=== PATIENT | male | born 1980 | race Caucasian/White ===

== ENCOUNTER 2019-03-31 11:58 | Emergency (ER) | payer MEDICAID, SELFPAY ==
[2019-03-31 12:13] VITALS: BP 133/97; PULSE 86; RESP 18; TEMP 36.9; O2SAT 98
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
[2019-03-31] MEDS: Ibuprofen 600 MG TAB PO (12:51)
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
--- NOTE | 2019-03-31 13:28 | DI.VRAD_ITS ---
EXAM: XR Right Foot Complete EXAM DATE/TIME: 03/31/2019 12:33 PM CLINICAL HISTORY: 38 years old, male; Foot; Right; Patient HX: Pain after kicked wall, especially great toe TECHNIQUE: Imaging protocol: XR Right foot. Views: 3 or more views. COMPARISON: CR RIGHT FOOT COMPLETE 02/26/2014 10:01 PM FINDINGS: Bones/joints: Normal. There is no evidence of acute fracture.There is no evidence of malalignment or dislocation. Soft tissues: Normal. IMPRESSION: There is no evidence of acute fracture.There is no evidence of malalignment or dislocation. Dictated and Authenticated by: Estefani Petersen MD. Ordering:WALTER Wood MD
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
== END 2019-03-31 13:20 | disposition home or self-care (01) ==
PROVIDERS: Emergency Provider Physician Assistant; PCP Family Medicine
DX: S60.221A Contusion of right hand, initial encounter (principal); S90.111A Contusion of right great toe without damage to nail, initial encounter; Y04.0XXA Assault by unarmed brawl or fight, initial encounter
CPT/HCPCS: 99284; 73130; 73630; 99282

== ENCOUNTER 2019-11-07 06:55 | Emergency (ER) | payer MEDICAID, SELFPAY ==
[2019-11-07 06:59] VITALS: BP 134/78; PULSE 96; TEMP 36.6; O2SAT 99
--- NOTE | 2019-11-07 07:17 | ED.GENADUL_ITS ---
Discharge Plan Disposition Patient Disposition: HOME Condition: Good Discharge Details Chief Complaint: Sorethroat Clinical Impression: Hoarse Primary Care Provider: Jacob Whitehead ED Provider: Frantz Dunbar [place] Meds and New Rx's Prescriptions: Continued buprenorphine-naloxone [Suboxone] 1 EACH film 12 mg Sublingual PT TAKES 16 MG DAILY RF: 0 dexmethylphenidate [Focalin XR] 35 mg Capsule,Er Biphasic 50-50 35 mg PO DAILY RF: 0 quetiapine [Seroquel] 400 mg Tablet 400 mg PO HS RF: 0 Discharge Instructions Additional Instructions: This may be related to an upper respiratory infection. Symptoms are mild. You have no fever, history of travel or known exposures. Get some rest, drink plenty of fluids, use Tylenol for discomfort. We would prefer you to contact primary care in the future for mild symptoms or questions. Return to emergency department if increasing shortness of breath, mental status changes, chest pain, vomiting, other concerns. Referrals: Jacob Whitehead [Primary Care Provider] - Medical Decision Making Patient looks completely well. Dry mucous membranes but no erythema, exudate. No difficulty breathing. Normal pulse oximetry. Lungs clear. No stridor. Screens negative for coronavirus. Educated on use of emergency department, especially during this time of pandemic. Told to rest, hydrate, use Tylenol as needed. Contact primary care in future for mild symptoms. Return to ED for mental status changes, difficulty breathing, chest pain, inability to swallow, other concerns. HPI General Mode of arrival: ambulatory . Date/Time Provider Initiated Documentation: 11/07/19 07:09 . Limitations to Documentation: no limitations . Information obtained by: patient and RN notes reviewed . HPI Narrative: Patient presents to ED with complaint of mild sore throat and hoarseness. He woke up this morning like this. He otherwise does not feel ill. He has no fever. He has a smoker's cough which is unchanged. He has no shortness of breath or chest pain. He has no other URI type symptoms. There is been no travel. He has no known exposure to COVID. Related Data Home Medications Medication Instructions Recorded Confirmed buprenorphine-naloxone [Suboxone] 12 mg SUBLINGUAL PT TAKES 16 MG 04/09/13 11/07/19 DAILY film quetiapine [Seroquel] 400 mg PO HS 03/31/19 11/07/19 dexmethylphenidate [Focalin XR] 35 mg PO DAILY 11/07/19 11/07/19 Allergies Allergy/AdvReac Type Severity Reaction Status Date / Time Penicillins Allergy Severe Anaphylaxsi Unverified 03/31/19 12:21 s General Stated Complaint: Sorethroat MIQUEL: 4 Review of Systems Constitutional Constitutional: Denies body ache(s), Denies chills, Denies fever(s), Denies headache(s) and Denies malaise ENT Ears, Nose, Mouth, and Throat: Denies otalgia, Denies facial pain, Denies headache(s), Reports hoarseness, Denies sinus pain and Reports sore throat Cardiovascular Cardiovascular: Denies chest pain and Denies dyspnea Respiratory Respiratory: Denies chest congestion, Reports cough and Denies dyspnea Neurologic Neurologic: Denies headache(s) [facility] Medical History History of substance abuse (Acute) Surgical History No significant past surgical history (Acute) Social History Smoking/Tobacco Use Status: Current every day Tobacco Type: cigarettes Alcohol Intake: current Alcohol Intake frequency: a few times a month Alcohol type: beer Drug use: Occasionally Substance use type: marijuana Do you feel safe at home: Yes Do you feel safe in your relationship?: Yes Additional Social history: Homeless Exam Narrative Exam Narrative: Vitals: Afebrile. Normal vital signs and room air pulse oximetry. Const: WDWN male in NAD. HEENT: NC/AT. Normal facial exam. Normal TMs. Dry mucous membranes. No oral pharyngeal erythema, exudate, edema, ulcers. Eyes: Normal conjunctiva and sclera. Neck: Supple. Trachea midline. Lungs: Normal respiratory effort. Lungs are clear. Cor: RRR without murmur/gallop. Neuro: A+O x 3. Normal speech, mentation, gait. Cranial nerves II - XII grossly intact. No gross motor or sensory deficit. Course Vital Signs Vital signs: Vital Signs Temperature 97.9 F 11/07/19 06:59 Pulse 96 H 11/07/19 06:59 Blood Pressure 134/78 11/07/19 06:59 Pulse Oximetry 99 11/07/19 06:59 Temperature 97.9 F 11/07/19 06:59 Temperature Source Temporal Artery Scan 11/07/19 06:59 Pulse 96 H 11/07/19 06:59 Respiratory Effort Non-Labored 11/07/19 07:00 Blood Pressure 134/78 11/07/19 06:59 Blood Pressure Position Sitting 11/07/19 06:59 Pulse Oximetry 99 11/07/19 06:59 Oxygen Delivery Method Room Air 11/07/19 06:59 Oxygen Flow Rate 0 11/07/19 06:59 Pain Level 0 11/07/19 06:59
== END 2019-11-07 07:28 | disposition home or self-care (01) ==
LOC: ER 07:36
PROVIDERS: Emergency Provider Emergency Medicine; PCP Family Medicine
DX: R49.0 Dysphonia (principal); F17.210 Nicotine dependence, cigarettes, uncomplicated
CPT/HCPCS: 99282

== ENCOUNTER 2020-02-18 18:44 | Emergency (ER) | payer MEDICAID, SELFPAY ==
[2020-02-18 18:45] VITALS: BP 148/93; PULSE 109; RESP 16; TEMP 37.3; O2SAT 100
--- NOTE | 2020-02-18 18:45 | DI.RAD_ITS ---
EXAM: XR CHEST 2V PA LATERAL CLINICAL HISTORY: right chest pain TECHNIQUE: 2D digital imaging was performed. COMPARISON: No exams were available for comparison FINDINGS: MEDIASTINUM: Normal. HEART: Normal. PULMONARY VASCULATURE: Normal. LUNGS: Clear. PLEURAL SPACE: No pleural effusion or pneumothorax. BONE:Normal. OTHER FINDINGS:Normal. IMPRESSION: No acute pulmonary findings. DATA REPOSITORY: RADIATION DOSE DELIVERED:
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
[2020-02-18 19:23] LABS: ETHANOL BLOOD 97.9 mg/dL (<3)
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
--- NOTE | 2020-02-18 19:30 | DI.VRAD_ITS ---
PROCEDURE INFORMATION: Exam: XR Chest, 2 Views Exam date and time: 02/18/2020 7:14 PM Age: 39 years old Clinical indication: Right-sided chest pain; Patient HX: Right sided chest pain TECHNIQUE: Imaging protocol: XR of the chest Views: 2 views. COMPARISON: CR CHEST 2 VIEWS PA,LAT 06/17/2013 10:31 AM FINDINGS: Lungs: Unremarkable. No consolidation. Pleural space: Unremarkable. No pleural effusion. No pneumothorax. Heart/Mediastinum: Unremarkable. No cardiomegaly. Bones/joints: Unremarkable. IMPRESSION: No acute findings. Dictated and Authenticated by: Kannan Miranda MD. Ordering:NEAL Mccall MD
[2020-02-18] MEDS: Ibuprofen 400 MG TAB PO (19:52)
[2020-02-18 20:02] LABS: *AMPHETAMINES SCREEN URINE Negative (Negative); *BARBITURATES SCREEN URINE Negative (Negative); *BENZODIAZEPINES SCREEN URINE Negative (Negative); Cannabinoids THC POSITIVE (Negative); Cocaine Screen,Urine Negative (Negative); METHADONE URINE SCREEN Negative (Negative); OPIATES URINE SCREEN Negative (Negative); Tricyclic Antidepressants Negative (Negative)
== END 2020-02-18 20:05 | disposition home or self-care (01) ==
LOC: ER 20:37
PROVIDERS: Emergency Provider Student in an Organized Health Care Education/Training Program; PCP Family Medicine
DX: S20.211A Contusion of right front wall of thorax, initial encounter (principal); Y35.813A Legal intervention involving manhandling, suspect injured, initial encounter; R06.02 Shortness of breath; F10.10 Alcohol abuse, uncomplicated; Y90.4 Blood alcohol level of 80-99 mg/100 ml; F12.90 Cannabis use, unspecified, uncomplicated
CPT/HCPCS: 80307; 99285; 71046; 80320; 99284

== ENCOUNTER 2020-06-01 14:10 | Outpatient (REF) | payer MEDICAID, SELFPAY ==
[2020-06-01 19:14] LABS: HCT 39.8 % (40.0-50.0); HGB 12.9 g/dL (13.5-17.5); MCH 29.8 pg (27.0-33.0); MCHC 32.4 % (32.0-36.0); MCV 91.9 fL (80-95); MPV 11.5 fL (8.0-11.0); Platelet Count 255 10^3/uL (130-400); RBC 4.33 10^6/uL (4.36-5.78); RDW 14.1 % (11.8-14.1); WBC 4.01 10^3/uL (4.4-10.8)
[2020-06-01 19:18] LABS: ALT 29 U/L (16-63); AST 20 U/L (15-37); Albumin 3.9 g/dL (3.4-5.0); Alkaline Phosphatase 123 U/L (46-116); Anion Gap 7.4 mmol/L (3-11); BUN 6 mg/dL (7-18); Bilirubin, Total 0.3 mg/dL (0.2-1.0); CO2 31.6 mmol/L (21.0-32.0); CREATININE 0.72 mg/dL (0.70-1.30); Calcium 9.4 mg/dL (8.5-10.1); Calculated LDL 111 mg/dL (<100); Chloride 105 mmol/L (98-107); Cholesterol 212 mg/dL (<200); Glucose 92 mg/dL (74-106); HDL Cholesterol 45 mg/dL (40-60); Potassium 5.1 mmol/L (3.5-5.1); Sodium 144 mmol/L (136-145); Total Protein 7.2 g/dL (6.4-8.2); Triglyceride 283 mg/dL (<150)
[2020-06-01 19:55] LABS: Hemoglobin A1C 5.4 % (<5.7)
[2020-06-01 20:22] LABS: TSH 0.73 uIU/mL (0.36-3.74)
[2020-06-03 09:34] LABS: Hepatitis B Surface Ab Negative (See Note)
[2020-06-03 10:18] LABS: HIV-1/2 Ag & Ab Screen Negative (Negative)
[2020-06-03 10:21] LABS: Hepatitis B Surface Ag Negative (Negative)
[2020-06-03 10:24] LABS: Hep B Core Antibody Negative (Negative)
[2020-06-03 11:10] LABS: Hep A Total Ab w Rflx IgM Negative (Negative)
[2020-06-03 13:50] LABS: HCV RNA Qualitative Detected (Undetected)
[2020-06-05 14:40] LABS: HCV Genotype 1a (Undetected)
== END 2020-06-01 14:30 ==
LOC: NCHCN 14:10
PROVIDERS: PCP Family Medicine; Visit Provider Family Medicine
DX: B19.20 Unspecified viral hepatitis C without hepatic coma (principal); F31.9 Bipolar disorder, unspecified; Z13.220 Encounter for screening for lipoid disorders; Z13.1 Encounter for screening for diabetes mellitus; Z11.4 Encounter for screening for human immunodeficiency virus [HIV]; Z01.84 Encounter for antibody response examination
CPT/HCPCS: 80053; 80061; 85027; 86704; 86706; 86709; 87340; 87389; 87522; 83036; 84443; 87350; 87521

== ENCOUNTER 2021-03-15 07:03 | Emergency (ER) | payer MEDICAID, SELFPAY ==
[2021-03-15 07:06] VITALS: BP 134/89; PULSE 91; RESP 17; TEMP 37.1; O2SAT 97
--- NOTE | 2021-03-15 08:16 | W.ED.GENAD ---
Discharge Plan Disposition Patient Disposition: HOME Condition: Stable Discharge Details Clinical Impression: Forehead laceration Primary Care Provider: Jacob Whitehead ED Provider: Hardeep Arredondo Home Meds and New Rx's Prescriptions: Continued buprenorphine-naloxone [Suboxone] 1 EACH film 12 mg Sublingual PT TAKES 16 MG DAILY RF: 0 dexmethylphenidate [Focalin XR] 35 mg Capsule,Er Biphasic 50-50 35 mg PO DAILY RF: 0 gabapentin 800 mg Tablet 800 mg PO TID RF: 0 quetiapine [Seroquel] 400 mg Tablet 400 mg PO HS RF: 0 Discharge Instructions Instructions: Facial Laceration (ED) Additional Instructions: Laceration repaired without difficulty using 6 stitches. Keep the area clean and dry, cool compresses as tolerated. [id number] Tylenol and/or Motrin as directed for discomfort. Please watch for new or worsening symptoms and return to the ER for any concerns. Lastly, sutures should be removed in approximately 5 days, please return to the ER or make an appoint with your primary care provider. Medical Decision Making 40-year-old gentleman presents with a forehead laceration status post a mechanical trip and fall. Denies any other injury, LOC, headache, visual changes, neck pain, etc. Tetanus status is up-to-date. He appears well, nontoxic, no acute distress, neurologically intact. I see no clear indication for advanced imaging at this time. Will repair laceration. Laceration repaired without difficulty. Antibiotic ointment applied. Standard discharge and return precautions given. This documentation was generated using Android App Review Source dictation system, please disregard any oddities of phrase or misspellings. Medical Records Medical records reviewed: Yes I reviewed the patient's medical records. HPI General Mode of arrival: ambulatory. Date/Time Provider Initiated Documentation: 03/15/21 07:44. Limitations to Documentation: no limitations. Information obtained by: patient. HPI Narrative: This is a 40-year-old gentleman, denies significant past medical history, reports that his tetanus status is up-to-date, presents for a forehead laceration. He reports shortly before arrival he had a mechanical trip and fall striking his forehead on a coffee table. He denies LOC, global headache, visual change, neck pain, nausea, vomiting, numbness, tingling, weakness. Only complaint right now is that of moderate discomfort at the site of the laceration. Patient did not take any medications prior to arrival. He has no additional questions or concerns at this time. Related Data Home Medications Medication Instructions Recorded Confirmed buprenorphine-naloxone [Suboxone] 12 mg SUBLINGUAL PT TAKES 16 MG 04/09/13 03/15/21 DAILY film quetiapine [Seroquel] 400 mg PO HS 03/31/19 03/15/21 dexmethylphenidate [Focalin XR] 35 mg PO DAILY 11/07/19 03/15/21 gabapentin 800 mg PO TID 03/15/21 03/15/21 Allergies Allergy/AdvReac Type Severity Reaction Status Date / Time Penicillins Allergy Severe Anaphylaxsi Unverified 03/15/21 07:11 s General Stated Complaint: Laceration MIQUEL: 4 Review of Systems Constitutional Constitutional: Denies headache(s) and Denies weakness Eyes Eyes: Denies change in vision ENT Ears, Nose, Mouth, and Throat: Denies dizziness, Denies headache(s) and Denies neck pain Gastrointestinal Gastrointestinal: Denies nausea and Denies vomiting Musculoskeletal Musculoskeletal: Denies neck pain, Denies numbness and Denies tingling Neurologic Neurologic: Denies dizziness, Denies headache(s), Denies numbness, Denies tingling and Denies weakness [facility] Medical History History of substance abuse Surgical History No significant past surgical history Social History Smoking/Tobacco Use Status: Current every day Tobacco Type: cigarettes Smoking risk assessment performed?: Yes Alcohol Intake: former Drug use: Socially Substance use type: marijuana Do you feel safe at home: Yes Do you feel safe in your relationship?: Yes Additional Social history: Homeless Exam Const General: cooperative, healthy appearing, comfortable and no acute distress Orientation: alert, awake and oriented x3 [facility] Head: normocephalic Head images: 1. Irregular, vertical, 3 cm laceration. Minimal localized discomfort to palpation without crepitus, bony point tenderness, active bleeding or obvious foreign body. Neuro, vascular, tendon intact. Ears: external ears normal, TM's normal bilaterally and EAC's normal General nose exam: external nose normal Mouth: moist mucous membranes Throat: posterior oropharynx normal Eyes General: appearance normal, both eyes and all related structures Alignment and Position: alignment normal Periorbital: periorbital findings normal Eyelids: eyelids normal Conjunctivae: conjunctivae normal Sclera: sclerae normal Cornea: corneas normal Pupils: PERRL EOM: EOM intact bilaterally Direct ophthalmoscopy: normal light reflex Neck Neck: normal visual inspection, full ROM, trachea midline, supple and nontender Resp Effort & Inspection: normal respiratory effort and able to speak in complete sentences Skin General skin exam: no rashes or lesions noted Neuro General: patient alert, patient awake, patient oriented x3, moves all extremities and no focal motor deficits Cognition: normal cognition Speech: speech normal Gait: normal gait Motor: muscle tone normal throughout, no movement abnormalities noted and no fasciculations Sensory Exam: no sensory deficits noted Coordination: Does not sway with eyes open Extrem General: normal to inspection and full ROM Psych Appearance: grossly normal Mental Status: mental status grossly normal Course Vital Signs Vital signs: Vital Signs Temperature 37.1 C 03/15/21 07:06 Pulse 91 H 03/15/21 07:06 Respiratory Rate 17 03/15/21 07:06 Blood Pressure 134/89 03/15/21 07:06 Pulse Oximetry 97 03/15/21 07:06 Temperature 37.1 C 03/15/21 07:06 Pulse 91 H 03/15/21 07:06 Respiratory Rate 17 03/15/21 07:06 Respiratory Effort Non-Labored 03/15/21 07:10 Blood Pressure 134/89 03/15/21 07:06 Blood Pressure Position Sitting 03/15/21 07:06 Pulse Oximetry 97 03/15/21 07:06 Oxygen Delivery Method Room Air 03/15/21 07:06 Oxygen Flow Rate 0 03/15/21 07:06 Pain Level 7 03/15/21 07:06 Procedures Laceration Laceration 1: Site: face Size (cm): 3 Description: irregular and clean Depth: simple, single layer Local Anesthetic: Lidocaine 1% and with Epi Amount of anesthesia used (mL): 5 Pre-repair: wound explored, irrigated extensively and deep structures intact Skin layer closed with: nylon Size (cm): 6-0 Number of sutures: 6 Technique: simple, interrupted
== END 2021-03-15 08:20 | disposition home or self-care (01) ==
LOC: ER 08:29
PROVIDERS: Emergency Provider Physician Assistant; PCP Family Medicine
DX: S01.81XA Laceration without foreign body of other part of head, initial encounter (principal); W01.190A Fall on same level from slipping, tripping and stumbling with subsequent striking against furniture, initial encounter
CPT/HCPCS: 12013

== ENCOUNTER 2022-03-13 16:01 | Emergency (ER) | payer MEDICAID, SELFPAY ==
[2022-03-13 16:06] VITALS: BP 114/56; PULSE 73; RESP 18; TEMP 36.7; O2SAT 98
--- OUTSIDE RECORDS SUMMARY | 2022-03-13 16:24 | XMS_ITS | Encounter Summary ---
:1980 Author Organization [facility] [place] [address] Care Team Providers Name Role Phone Jacob Sexton MD Primary Care Provider Encounter Details Date Type Department Care Team Description 07/02/2013 Telephone Pain Management at [facility] Malorie Cohen, [place] [address] Social History Tobacco Use Types Packs/Day Years Used Date Current Every Day Smoker Cigarettes 0.5 Sex Assigned at Date Recorded Not on file documented as of this encounter Miscellaneous Notes Telephone Encounter - Malorie Cohen RN - 07/02/2013 10:33 AM EST Shaheed Caldera :1980 Message left: I left a message on answering machine Mr. Caldera at 10:33 AM regarding his upcoming lumbar epidural steroid injection with Dr. Kenneth Carvajal MD. Message included the followin. Patient instructed to arrive at 2:30 (30 minutes prior to procedure start time) on 07/03/13 (dateof procedure) with their trolley coach driver. 2. Following instructions left in the message: - Bring Updated list of medications including dosage and reason for taking. - Call the Pain Clinic Nurse at for: ~Procedure instructions. ~If you are taking antibiotics. ~If you have any signs or symptoms of infection, cold or flu. ~If you have any skin breakdown (rashes, cysts, or abscess.) ~If you are taking anticoagulants / blood thiners (Plavix, Pletal, Lovenox, Coumadin, etc). documented in this encounter Plan of Treatment Not on filedocumented as of this encounter Visit Diagnoses Not on filedocumented in this encounter Care Teams Box Repairer Relationship Specialty Start Date End Date Jacob Sexton MD PCP - General 04/09/13 07/02/13 documented as of this encounter
--- OUTSIDE RECORDS SUMMARY | 2022-03-13 16:24 | XMS_ITS | Encounter Summary ---
:1980 [place] [address] Care Team Providers Name Role Phone Jacob Sexton MD Primary Care Provider Encounter Details Date Type Department Care Team Description 07/03/2013 Orders Only Pain Management at Kenneth Butler MD [facility] [place] [address] PAIN CLINIC [phone] [place], [place] [address] (Wo rk) Social History Tobacco Use Types Packs/Day Years Used Date Current Every Day Smoker Cigarettes 0.5 Sex Assigned at Date Recorded Not on file documented as of this encounter Plan of Treatment Pending Results Name Type Priority Associated Diagnoses Date/Ti me Film Library-storage Imaging Routine 013 3:00 PM EST only pain clinic C-arm documented as of this encounter Visit Diagnoses Not on filedocumented in this encounter Care Teams Planning Engineer Relationship Specialty Start Date End Date Jacob Sexton MD PCP - General 07/03/13 08/04/13 documented as of this encounter
--- OUTSIDE RECORDS SUMMARY | 2022-03-13 16:24 | XMS_ITS | Encounter Summary ---
:1980 Author Organization [place] [address] Care Team Providers Name Role Phone Jacob Sexton MD Primary Care Provider Encounter Details Date Type Department Care Team Description 12/04/2013 Telephone Pain Management at [facility] Lei Meredith, [place] [address] Social History Tobacco Use Types Packs/Day Years Used Date Current Every Day Smoker Cigarettes 0.5 Sex Assigned at Date Recorded Not on file documented as of this encounter Miscellaneous Notes Telephone Encounter - Lei Meredith, RN - 12/04/2013 11:23 AM EDT VM left on Triage line re: patient cancelled appointment with Dr. Carvajal for 12/06/13 due to transportation difficulty. Patient wanted Dr. Carvajal to know. TC to patient to confirm acknowledgement of VM .LEI MEREDITH RN documented in this encounter Plan of Treatment Not on filedocumented as of this encounter Visit Diagnoses Not on filedocumented in this encounter Care Teams Tin Can Laborer Relationship Specialty Start Date End Date Jacob Sexton MD PCP - General 10/16/13 08/20/19 documented as of this encounter
--- OUTSIDE RECORDS SUMMARY | 2022-03-13 16:24 | XMS_ITS | Encounter Summary ---
:1980 Author Organization [facility] [place] [address] Care Team Providers Name Role Phone Jacob Sexton MD Primary Care Provider Encounter Details Date Type Department Care Team Description 03/07/2013 Orders Only Sp[facility] at [facility] Shabbir Prince MD [facility] [place] [address] NEUROSURGERY [phone] [place], [place] [address] (Wo rk) Social History Tobacco Use Types Packs/Day Years Used Date Never Assessed Sex Assigned at Date Recorded Not on file documented as of this encounter Plan of Treatment Not on filedocumented as of this encounter Procedures Procedure Name Priority Date/Time Associated Diagnosis Comme nts FILM LIBRARY Routine 03/07/2013 10:02 AM Results for this STORAGE ONLY MR EDT procedure ar e in SPINE the results section. documented in this encounter Results Film Library- Storage only MR Spine (03/07/2013 10:02 AM EDT) Specimen (Source) Anatomical Collection Method Collection Time Re ceived Time Location / / Volume Laterality 03/07/2013 10:02 AM EDT Narrative RAD - 04/16/2014 11:28 AM EDT This is a non-reportable exam. Procedure Note Kishor Mike - 04/16/2014Formatti ng of this note might be different from the original. This is a non-reportable exam. Shabbir Grant MD IMG FILM LIBRARY ORDERABLES Performing Organization Address City/State/ZIP Code Phon e Number [facility] [address] [facility] [place] [address] documented in this encounter Visit Diagnoses Not on filedocumented in this encounter Care Teams Wireless Internet Installer Relationship Specialty Start Date End Date Jacob Sexton MD PCP - General 04/09/13 07/02/13 documented as of this encounter
--- OUTSIDE RECORDS SUMMARY | 2022-03-13 16:24 | XMS_ITS | Encounter Summary ---
:1980 [place] [address] Care Team Providers Name Role Phone Jacob Sexton MD Primary Care Provider Encounter Details Date Type Department Care Team Description 11/22/2013 Telephone Pain Management at [facility] Lei Meredith, [place] [address] Social History Tobacco Use Types Packs/Day Years Used Date Current Every Day Smoker Cigarettes 0.5 Sex Assigned at Date Recorded Not on file documented as of this encounter Miscellaneous Notes Telephone Encounter - Lei Meredith, RN - 11/22/2013 2:19 PM EDT Patient called to request Dr. Carvajal fill out some papers regarding a disability case from a crush injury in L4 & L5. Patient states that paperwork was sent to Dr. Carvajal via patient's state's attorney andaccording to patient, Dr. Carvajal has refused to fill out paperwork and patient would like to know why. Patient was informed that his message would be delivered to Dr. Carvajal for feedback. Patient had no further requests. LEI MEREDITH, AG documented in this encounter Plan of Treatment Not on filedocumented as of this encounter Visit Diagnoses Not on filedocumented in this encounter Care Teams Sugar Trucker Relationship Specialty Start Date End Date Jacob Sexton MD PCP - General 10/16/13 08/20/19 documented as of this encounter
--- OUTSIDE RECORDS SUMMARY | 2022-03-13 16:24 | XMS_ITS | Encounter Summary ---
:1980 Author Organization [facility] Address [address] [place] [address] Care Team Providers Name Role Phone Jacob Sexton MD Primary Care Provider Reason for Visit Reason Onset Date Comments Headache 07/11/2013 worsening for multip le days; worse when upright, light sensitive Encounter Details Date Type Department Care Team Description 07/11/2013 Telephone Spine Center at [facility] non Basilia Bower Headache (worsening for [facility] Estefania RN multiple days; worse Drive when upright, [place] [address] sensitive) [phone] Social History Tobacco Use Types Packs/Day Years Used Date Current Every Day Smoker Cigarettes 0.5 Sex Assigned at Date Recorded Not on file documented as of this encounter Miscellaneous Notes Telephone Encounter - Basilia Bower RN - 07/11/2013 2:06 PM EST Received call from pt's mother, who later put pt on the phone; reporting injection with Dr Donahue 07/03; Denies any benefit. Reports onset of nausea since the injection. Onset of a headache ~ 07/08 or 07/09 which has gotten progressively worse. Describes it as migraine at present time. Reports light se nsitivity, continued nausea and increase in headache when sitting or standing. Reports that the headache does ease up when he's supine. Caller reports leaving messages at [phone] for two days; reportsawaiting return call but he does acknowledge not paying close attention to his cell phone. Offerred to transfer caller to nurses line so he could speak with staff directly. documented in this encounter Plan of Treatment Not on filedocumented as of this encounter Visit Diagnoses Not on filedocumented in this encounter Care Teams Nursing Unit Clerk Relationship Specialty Start Date End Date Jacob Sexton MD PCP - General 07/03/13 08/04/13 documented as of this encounter
--- OUTSIDE RECORDS SUMMARY | 2022-03-13 16:24 | XMS_ITS | Encounter Summary ---
:1980 Author Organization [facility] [address] Care Team Providers Name Role Phone Jacob Sexton MD Primary Care Provider Reason for Referral Physical Therapy (Routine) - Closed by system - Referral Specialty Diagnoses / Procedures Referred By Contact Refer red To Contact Physical Therapy Diagnoses Myalgia and myositis, unspecified Kenneth Carvajal MD [facility] [place] [address] Referral ID Status Reason Start Expiration Visits Visits Date Date Requested Authorized [id number] Closed by Evaluate and 10/16/2013 04/14/2014 1 1 system - Treat Referral Reason for Visit Reason Comments Back Pain Encounter Details Date Type Department Care Team Description 10/16/2013 Procedure visit Pain Management at Kenneth Carvajal lgia and myositis, [facility] MD Tomás unspecified (Primary [facility] [address] [place], [place] PA[facility] CLINIC [address] [place] [address] [phone] Social History Tobacco Use Types Packs/Day Years Used Date Current Every Day Smoker Cigarettes 0.5 Sex Assigned at Date Recorded Not on file documented as of this encounter Last Filed Vital Signs Vital Sign Reading Time Taken Comments Blood Pressure 133/80 10/16/2013 1:11 PM EST Pulse 104 10/16/2013 1:11 PM EST Temperature - - Respiratory Rate 18 10/16/2013 1:11 PM EST Oxygen Saturation 100% 10/16/2013 1:11 PM EST Inhaled Oxygen Concentration - - Weight 63.5 kg (140 lb) 10/16/2013 1:11 PM EST Height 167.6 cm (5' 6) 10/16/2013 1:11 PM EST Body Mass Index 22.6 10/16/2013 1:11 PM EST documented in this encounter Patient Instructions Patient InstructionsAraceli Diaz LPN - 10/16/2013 1:29 PM EST Pain Management Center Discharge Instructions: You were seen by Dr. Kenneth Carvajal MD who performed Trigger Point INJ.. [x] You may resume your normal activities: today. You may shower today. DO NOT tub bathe, use whirlpools, hot tubs or pool therapy for 2 days. Remove Band-Aid(s) later today/tomorrow. Do not drive until tomorrow. Use caution walking/climbing stairs as you may be unsteady on your feet. You may use your usual medications, including pain medications, as directed, unless otherwise instructed. You may use an ice pack as needed for the first 24 hours, on for 20 minutes then off for 20 minutes.Do not apply heat today. Attempt to empty your bladder 4-6 hours after your procedure. You received the following medications: Lidocaine. During regular business hours, please phone the Pain Management Center at for appointments or with any questions or if the following or other troubling symptoms develop: 1) Prolonged dizziness or weakness (more than 1 day). 2) Localized swelling, redness or drainage at the injection site(s). 3) Temperature of 101 degrees that lasts for more than 4 hours. After 5 PM or on weekends, call and ask for Pain Clinic provider on-call. If you are unable to reach the Pain Management Center and have a complication, please call your Primary Care Provider or proceed to your local emergency department. Araceli Diaz LPN Special instructions documented in this encounter Progress Notes Kenneth Carvajal MD - 10/16/2013 1:41 PM EST Patient came in today to have a repeat lumbar epidural steroid injection. Patient tells me that majority of his pain is along the belt line left-sided in the medial superior gluteal area. The pain is constant in the belt line with occasional radiation sharp pain down the leg into the calf. He denies any new symptoms including numbness or weakness. On exam, patient has significant myofascial contraction knots in the medial superior gluteal area left-sided. Patient has 5 out of 5 strength in the L4-S1 muscle groups bilaterally. I impression is that the majority of his pain is myofascial and longer neuropathic. Procedure note Trigger point injection x1 Each area was prepped with alcohol. Using a 25 gauge 2 inch needle and 1% lidocaine, I was able to elicit a positive jump sign at each location. One or two cc of 1% lidocaine was injected into each contraction knot, with one or two cc injected around each contraction knot. Negative aspiration at all times. Total of 4 cc of lidocaine used. No complications. It is important to note however the patient has been to stop after the first trigger point injections because of excessive pain. Plan to further injections to perform. Plan-patient does have myofascial pain. We'll send him to physical therapy. Followup as weeks. I showed him a simple chest stretch. Araceli Diaz LPN - 10/16/2013 1:11 PM EST Pre-Procedure Screening Questions: 1. Status: No 2. 3. Patient states they have a power screwdriver operator to transport after procedure? Yes 4. Patient taking antibiotics at present? No 5. NPO per Pain Management Center protocol? No 6. 7. Patient diabetic: No __ borderline (not treated with medications) __ managed with oral medications __ managed with injected medications 8. Patient routinely taking anticoagulants ? No Date stopped Current INR Patient Vital Signs documented in Doc Flowsheets associated with this encounter. Patient Discharge Instructions were reviewed with patient and copy provided to patient. documented in this encounter Plan of Treatment Scheduled Referrals Name Type Priority Associated Diagnoses Order S chedule Referral to Outpatient Referral Routine Myalgia and myositis, Ordered: Physical Therapy unspecified 10/16/2013 documented as of this encounter Visit Diagnoses Diagnosis Myalgia and myositis, unspecified - Prim lesa Mylagia and myositis, unspecified documented in this encounter Administered Medications Inactive Administered Medications - up to 3 most recent administrations Medication Order MAR Action Action Date Dose Rate Site lidocaine (PF) (XYLOCAINE) 10 mg/mL Given 10/16/2013 2:00 PM EST 50 mg (1 %) injection 50 mg 50 mg, Other, ONCE, 1 dose, On Mon10/16/13 at 1400, Routine documented in this encounter Care Teams Channel Development Manager Relationship Specialty Start Date End Date Jacob Sexton MD PCP - General 10/16/13 08/20/19 documented as of this encounter
--- OUTSIDE RECORDS SUMMARY | 2022-03-13 16:24 | XMS_ITS | Encounter Summary ---
:1980 [place] [address] Care Team Providers Name Role Phone Jacob Sexton MD Primary Care Provider Encounter Details Date Type Department Care Team Description 09/09/2014 Orders Only Orthopaedics at [facility] Marlon Palumbo MD Heel [place], [place] [address] ORTHOPAEDIC SURG [place], [place] [address] (Wo rk) Social History Tobacco Use Types Packs/Day Years Used Date Current Every Day Smoker Cigarettes 0.5 Sex Assigned at Date Recorded Not on file documented as of this encounter Plan of Treatment Not on filedocumented as of this encounter Visit Diagnoses Diagnosis Heel pain, right documented in this encounter Care Teams Nursery Helper Relationship Specialty Start Date End Date Jacob Sexton MD PCP - General 10/16/13 08/20/19 documented as of this encounter
--- OUTSIDE RECORDS SUMMARY | 2022-03-13 16:24 | XMS_ITS | Encounter Summary ---
:1980 Author Organization [facility] [place] [address] Care Team Providers Name Role Phone Jacob Sexton MD Primary Care Provider Encounter Details Date Type Department Care Team Description 02/26/2014 Orders Only Radiology Jacob Patel MD [facility] [address] [place] [address] [place], [place] [phone] (Wo rk) Social History Tobacco Use Types Packs/Day Years Used Date Current Every Day Smoker Cigarettes 0.5 Sex Assigned at Date Recorded Not on file documented as of this encounter Plan of Treatment Not on filedocumented as of this encounter Procedures Procedure Name Priority Date/Time Associated Diagnosis Comme nts FILM LIBRARY Routine 02/26/2014 8:45 AM Results f or this STORAGE ONLY DX EDT procedure ar e in FOOT the results section. documented in this encounter Results Film Library- Storage only DX Foot (02/26/2014 8:45 AM EDT) Anatomical Region Laterality Modality Other Specimen (Source) Anatomical Collection Method Collection Time Re ceived Time Location / / Volume Laterality 02/26/2014 8:45 AM EDT Narrative 09/08/2014 8:39 AM EST This is a Non-reportable exam Procedure Note DUNCAN, UNSIGNED REPORT - 09/08/2014Formatt ing of this note might be different from the original. This is a Non-reportable exam Jacob Sexton MD IMG FILM LIBRARY ORDERABLES documented in this encounter Visit Diagnoses Not on filedocumented in this encounter Care Teams Die Cast Operator Relationship Specialty Start Date End Date Jacob Sexton MD PCP - General 10/16/13 08/20/19 documented as of this encounter
--- OUTSIDE RECORDS SUMMARY | 2022-03-13 16:24 | XMS_ITS | Encounter Summary ---
:1980 [place] [address] Care Team Providers Name Role Phone Jacob Sexton MD Primary Care Provider Encounter Details Date Type Department Care Team Description 04/01/2014 Orders Only [place] [facility]lon Palumbo MD [facility] [place] [address] ORTHOPAEDIC SURGERY [phone] [place], [place] [address] (Wo rk) Social History Tobacco Use Types Packs/Day Years Used Date Current Every Day Smoker Cigarettes 0.5 Sex Assigned at Date Recorded Not on file documented as of this encounter Plan of Treatment Not on filedocumented as of this encounter Procedures Procedure Name Priority Date/Time Associated Diagnosis Comme nts FILM LIBRARY Routine 04/01/2014 9:04 AM Results f or this STORAGE ONLY DX EDT procedure ar e in FOOT the results section. documented in this encounter Results Film Library- Storage only DX Foot (04/01/2014 9:04 AM EDT) Anatomical Region Laterality Modality Other Specimen (Source) Anatomical Collection Method Collection Time Re ceived Time Location / / Volume Laterality 04/01/2014 9:04 AM EDT Narrative 09/10/2014 9:09 AM EST This is a Non-reportable exam Procedure Note DUNCAN, UNSIGNED REPORT - 09/10/2014Formatt ing of this note might be different from the original. This is a Non-reportable exam Marlon Palumbo MD IMG FILM LIBRARY ORDERABLES documented in this encounter Visit Diagnoses Not on filedocumented in this encounter Care Teams Cement Finisher Relationship Specialty Start Date End Date Jacob Sexton MD PCP - General 10/16/13 08/20/19 documented as of this encounter
--- OUTSIDE RECORDS SUMMARY | 2022-03-13 16:24 | XMS_ITS | Encounter Summary ---
:1980 [place] [address] Care Team Providers Name Role Phone Jacob Sexton MD Primary Care Provider Reason for Referral Second Surgical Opinion (Routine) - Closed Specialty Diagnoses / Procedures Referred By Contact Refer red To Contact Orthopaedic Surgery / Diagnoses Calcaneal fracture, right, closed, initial encounter Matias Kim MD Hecht, Paul J, MD Orthopaedics [facility] [address] [place] [address] Fax: Referral ID Status Reason Start Date Expiration Date Visits V isits Requested Authorized [id number] Closed Second 08/27/2014 08/27/2015 1 1 Opinion Reason for Visit Reason Onset Date Comments Medication Refill 08/27/2014 Encounter Details Date Type Department Care Team Description 08/27/2014 Refill Pain Management at Matias Kim MD Calcaneal fracture, [facility]3] right, closed, initial [facility] DR encounter [place] [address] [place] [address] [phone] (Wo rk) Social History Tobacco Use Types Packs/Day Years Used Date Current Every Day Smoker Cigarettes 0.5 Sex Assigned at Date Recorded Not on file documented as of this encounter Plan of Treatment Scheduled Referrals Name Type Priority Associated Order Schedule Diagnoses Referral to Outpatient Referral Routine Calcaneal fracture, O rdered: Orthopaedics right, closed, 08/27/2014 initial encounter documented as of this encounter Visit Diagnoses Diagnosis Calcaneal fracture, right, closed, initi al encounter documented in this encounter Care Teams Instructional Resource Teacher Relationship Specialty Start Date End Date Jacob Sexton MD PCP - General 10/16/13 08/20/19 documented as of this encounter
--- OUTSIDE RECORDS SUMMARY | 2022-03-13 16:24 | XMS_ITS | Encounter Summary ---
:1980 [place] [address] Care Team Providers Name Role Phone Jacob Sexton MD Primary Care Provider Encounter Details Date Type Department Care Team Description 04/29/2014 Orders Only [place] [facility]lon Palumbo MD [facility] [place] [address] ORTHOPAEDIC SURGERY [phone] [place], [place] [address] (Wo rk) Social History Tobacco Use Types Packs/Day Years Used Date Current Every Day Smoker Cigarettes 0.5 Sex Assigned at Date Recorded Not on file documented as of this encounter Plan of Treatment Not on filedocumented as of this encounter Procedures Procedure Name Priority Date/Time Associated Diagnosis Comme nts FILM LIBRARY Routine 04/29/2014 9:02 AM Results f or this STORAGE ONLY DX EDT procedure ar e in FOOT the results section. documented in this encounter Results Film Library- Storage only DX Foot (04/29/2014 9:02 AM EDT) Anatomical Region Laterality Modality Other Specimen (Source) Anatomical Collection Method Collection Time Re ceived Time Location / / Volume Laterality 04/29/2014 9:02 AM EDT Narrative 09/10/2014 9:07 AM EST This is a Non-reportable exam Procedure Note DUNCAN, UNSIGNED REPORT - 09/10/2014Formatt ing of this note might be different from the original. This is a Non-reportable exam Marlon Palumbo MD IMG FILM LIBRARY ORDERABLES documented in this encounter Visit Diagnoses Not on filedocumented in this encounter Care Teams Grazing Aide Relationship Specialty Start Date End Date Jacob Sexton MD PCP - General 10/16/13 08/20/19 documented as of this encounter
--- OUTSIDE RECORDS SUMMARY | 2022-03-13 16:24 | XMS_ITS | Encounter Summary ---
:1980 Author Organization [facility] [place] [address] Care Team Providers Name Role Phone Jacob Sexton MD Primary Care Provider Reason for Referral Consultation (Routine) - Closed Specialty Diagnoses / Procedures Referred By Contact Refer red To Contact Pain Management Diagnoses Back pain with radiation David Diehl MD [facility] [address] [place] [address] [address] Fax: Referral ID Status Reason Start Date Expiration Date Visits V isits Requested Authorized [id number] Closed Consult Only 06/27/2013 12/24/2013 1 1 Reason for Visit Reason Comments Back Pain Bilateral Hip Pain Bilateral Leg Pain Encounter Details Date Type Department Care Team Description 06/27/2013 Office Visit Spine Center at David Diehl Back tobi n with Sammy CHAN radiation to left leg [facility] (Pr imary Dx) [address] [place] SP[place] [address] [place] [address] [phone] Social History Tobacco Use Types Packs/Day Years Used Date Current Every Day Smoker Cigarettes 0.5 Sex Assigned at Date Recorded Not on file documented as of this encounter Last Filed Vital Signs Vital Sign Reading Time Taken Comments Blood Pressure 124/78 06/27/2013 2:11 PM EST Pulse - - Temperature - - Respiratory Rate - - Oxygen Saturation - - Inhaled Oxygen Concentration - - Weight 60.8 kg (134 lb) 06/27/2013 2:11 PM EST Height 167.6 cm (5' 6) 06/27/2013 2:11 PM EST Body Mass Index 21.63 06/27/2013 2:11 PM EST documented in this encounter Progress Notes David Diehl MD - 06/27/2013 2:42 PM EST Mr. Caldera is a 32-year-old gentleman seen today in the spine center consultation from Dr. Smart. The patient is seen and evaluated for chronic low back pain more recently, over the past several years left leg pain. It is not quite clear when his symptoms began. He reports having back pain in 2009 while he was at a work camp (alf) doing wood and he jumped out of a van and had the acute onset of pain. Subsequent to that he was carrying 250-pound bags of potatoes up some stairs and had more back pain. It is not clear when the left leg symptoms developed. His right leg is relatively asymptomatic. His back pain is the bigger problem. His left leg pain begins in the buttock, radiates in the lateral thigh, lateral leg, occasionally over the medial foot. He has a sense of weakness with the knee giving way on the left. He reports having physical therapy, which made him worse. He has had no steroid injections. Past history is notable for substance abuse. His medications include Antabuse and Suboxone amongst others in his medications and allergies, which include penicillin are confirmed. He denies any other medical or surgical issues. He reports hypothyroidism as a family history. Denies any cardiac disease. His review of systems is negative for GI, , or constitutional symptoms. This is a thin pleasant gentleman. He moves comfortably about the office and has no problems changing position. His gait is normal. He has an ankle brace on his right ankle, I believe. With this in place, he is still able to walk on his toes and heels. His spinal alignment is normal with a level pelvis and straight spine. He has pain to palpation in the midline low back and in the right sciatic notch. Left side is the symptomatic leg. His motor examination is normal. His sensory function is diminished to light touch in the left lateral leg and left medial foot. Reflexes are 2+ at the knees, 2 at the ankles. His straight leg raise test is negative. His imaging includes a lumbar MRI from 03/07/2013 from [facility]. This demonstrates a broad-based disk bulge at L4-L5, which maybe contributing to some narrowing in the L4-L5 lateral recess bilaterally even though he is symptomatic only on the left side. There is a small bulging disk at L5-S1, which I think is providing no nerve root compression. IMPRESSION: Chronic back pain with left leg symptoms. Back pain is more bothersome than the leg, symptoms have been chronic. Symptoms are exacerbated with physical therapy putting him at bed for several days. RECOMMENDATION: We reviewed these findings with the patient including the MRI findings. I am a bit hesitant to think that a lumbar disk excision at L4-L5 left side will cure all this gentleman's problems. I have advised against surgery at this point in time. I do not think he has maximized medical management. He is not on any anti-inflammatory medications. He has not had any epidural steroid injections. I think these would be worth trying. The operative success for diskectomy with back pain as the primary problem is pretty low as is the operative success for chronic back pain and chronic symptoms. Thus, I would hope to manage this medically rather than surgically. At this point, we have scheduled him for a series of epidural steroid injections here at the pain clinic. He preferred this rather than having Dr. Smart trying to do this closer to home. Hopefully, this will provide some relief. We will recheck as needed. documented in this encounter Plan of Treatment Scheduled Referrals Name Type Priority Associated Diagnoses Order S chedule Referral to Pain Outpatient Referral Routine Back pain with Or dered: Clinic radiation to left 06/27/2013 leg documented as of this encounter Visit Diagnoses Diagnosis Back pain with radiation to left leg - P rimary Backache, unspecified documented in this encounter Care Teams Global Climate Change Researcher Relationship Specialty Start Date End Date Jacob Sexton MD PCP - General 04/09/13 07/02/13 documented as of this encounter
--- OUTSIDE RECORDS SUMMARY | 2022-03-13 16:24 | XMS_ITS | Encounter Summary ---
:1980 Author Organization [facility] [place] [address] Care Team Providers Name Role Phone Tez Pandey MD Primary Care Provider [phone] Encounter Details Date Type Department Care Team Description 08/12/2013 Telephone Pain Management at [facility] Malorie Cohen, [place] [address] Social History Tobacco Use Types Packs/Day Years Used Date Current Every Day Smoker Cigarettes 0.5 Sex Assigned at Date Recorded Not on file documented as of this encounter Miscellaneous Notes Telephone Encounter - Malorie Cohen, RN - 08/12/2013 3:04 PM EST Shaheed Caldera :1980 Message left: I left a message on answering machine Mr. Caldera at 3:04 PM regarding his upcoming lumbar epiduralsteroid injection with Dr. Kenneth Carvajal MD. Message included the following: Following instructions left in the message: - Call the Pain Clinic Nurse at for: ~Procedure instructions. documented in this encounter Plan of Treatment Not on filedocumented as of this encounter Visit Diagnoses Not on filedocumented in this encounter Care Teams Examination Scorer Relationship Specialty Start Date End Date Tez Pandey MD PCP - General 08/05/13 10/15/13 documented as of this encounter
--- OUTSIDE RECORDS SUMMARY | 2022-03-13 16:24 | XMS_ITS | Clinical Summary ---
:1980 Author Organization [facility] Address [place] [id number] Care Team Providers Name Role Phone Unknown Primary Care Provider Unavailable Allergies Active Allergy Reactions Severity Noted Date Comments Penicillins Anaphylaxis High 06/27/2013 Medications Medication Sig Dispensed Refills Start Date End Date Status BUPRENORPHINE Place 16 mg 0 Acti ve HCL/NALOXONE HCL under the (SUBOXONE SL) tongue daily. cyclobenzaprine Take 5 mg by 0 A ctive (FLEXERIL) 5 mg tablet mouth 3 times daily as needed. QUEtiapine (SEROQUEL) 100 Take 100 mg by 0 Active mg tablet mouth daily as needed. hydrOXYzine (ATARAX) 50 Take 50 mg by 0 Active mg tablet mouth 3 times daily as needed. disulfiram (ANTABUSE) 250 Take 250 mg by 0 Active mg tablet mouth daily. Active Problems Problem Noted Date Calcaneal fracture 08/27/2014 Myalgia and myositis, unspecified 10/16/2013 Back pain with radiation to left leg 06/27/2013 Social History Tobacco Use Types Packs/Day Years Used Date Current Every Day Smoker Cigarettes 0.5 Sex Assigned at Date Recorded Not on file Last Filed Vital Signs Vital Sign Reading [...] Mass Index 22.6 10/16/2013 1:11 PM EST Plan of Treatment Health Maintenance Due Date Last Done Comments Covid-19 Vaccine (#1) 1986 HIV screen 1999 Hepatitis C Screening 1999 Lipid Screening 1999 Tdap adult 2000 Tetanus vaccine 2000 Influenza (Flu) vaccine ( - Influenza standard 04/21/2022 series) Care Teams Social Media Analyst Relationship Specialty Start Date End Date Unknown PCP - General 08/21/19 None
--- OUTSIDE RECORDS SUMMARY | 2022-03-13 16:24 | XMS_ITS | Encounter Summary ---
:1980 [place] [address] Care Team Providers Name Role Phone Jacob Sexton MD Primary Care Provider Encounter Details Date Type Department Care Team Description 03/04/2014 Orders Only Orth[place]ed[place] [facility] [place] Marlon Palumbo MD [facility] [place] [address] ORTHOPAEDIC SURGERY [phone] [place], [place] [address] (Wo rk) Social History Tobacco Use Types Packs/Day Years Used Date Current Every Day Smoker Cigarettes 0.5 Sex Assigned at Date Recorded Not on file documented as of this encounter Plan of Treatment Not on filedocumented as of this encounter Procedures Procedure Name Priority Date/Time Associated Diagnosis Comme nts FILM LIBRARY Routine 03/04/2014 9:06 AM Results f or this STORAGE ONLY DX EDT procedure ar e in FOOT the results section. documented in this encounter Results Film Library- Storage only DX Foot (03/04/2014 9:06 AM EDT) Anatomical Region Laterality Modality Other Specimen (Source) Anatomical Collection Method Collection Time Re ceived Time Location / / Volume Laterality 03/04/2014 9:06 AM EDT Narrative 09/10/2014 9:11 AM EST This is a Non-reportable exam Procedure Note DUNCAN, UNSIGNED REPORT - 09/10/2014Formatt ing of this note might be different from the original. This is a Non-reportable exam Marlon Palumbo MD IMG FILM LIBRARY ORDERABLES documented in this encounter Visit Diagnoses Not on filedocumented in this encounter Care Teams Ribbing Machine Operator Relationship Specialty Start Date End Date Jacob Sexton MD PCP - General 10/16/13 08/20/19 documented as of this encounter
--- OUTSIDE RECORDS SUMMARY | 2022-03-13 16:24 | XMS_ITS | Encounter Summary ---
:1980 Author Organization [facility] [place] [address] Care Team Providers Name Role Phone Jacob Sexton MD Primary Care Provider Encounter Details Date Type Department Care Team Description 07/11/2013 Orders Only Spine Center at [facility] Basilia Bower, [place] [address] Social History Tobacco Use Types Packs/Day Years Used Date Current Every Day Smoker Cigarettes 0.5 Sex Assigned at Date Recorded Not on file documented as of this encounter Progress Notes Basilia Bower, RN - 07/11/2013 5:48 PM EST Error; this encounter was opened erroneously when starting phone note. See phone note dated 07/11/13 documented in this encounter Plan of Treatment Not on filedocumented as of this encounter Visit Diagnoses Not on filedocumented in this encounter Care Teams Plastic Tile Setter Relationship Specialty Start Date End Date Jacob Sexton MD PCP - General 07/03/13 08/04/13 documented as of this encounter
--- OUTSIDE RECORDS SUMMARY | 2022-03-13 16:24 | XMS_ITS | Encounter Summary ---
:1980 Author Organization [facility] [place] [address] Care Team Providers Name Role Phone Jacob Sexton MD Primary Care Provider Reason for Visit Reason Onset Date Comments Patient Not Seen 04/19/2013 Encounter Details Date Type Department Care Team Description 04/15/2013 [facility] PAT[facility] NOT SEEN [facility] (Primary Dx) [facility] DR Holman NEUR[facility] [place] [phone] [phone] Social History Tobacco Use Types Packs/Day Years Used Date Never Assessed Sex Assigned at Date Recorded Not on file documented as of this encounter Progress Notes Jacqueline Rivera LPN - 04/19/2013 3:25 PM EDT This patient was not seen in this encounter. This patient was not seen in this encounter. This patient was not seen in this encounter. This patient was not seen in this encounter. documented in this encounter Plan of Treatment Not on filedocumented as of this encounter Visit Diagnoses Diagnosis PATIENT NOT SEEN - Primary documented in this encounter Care Teams Snack Bar Cashier Relationship Specialty Start Date End Date Jacob Sexton MD PCP - General 04/09/13 07/02/13 documented as of this encounter
--- OUTSIDE RECORDS SUMMARY | 2022-03-13 16:24 | XMS_ITS | Encounter Summary ---
:1980 [place] [address] Care Team Providers Name Role Phone Re Sexton MD Primary Care Provider Reason for Visit Reason Comments Back Pain L side Encounter Details Date Type Department Care Team Description 07/03/2013 Procedure visit Pain Management at [facility] Lum bar and sacral [facility] [place] Tomás arthritis [facility] [id number] [place] [address] [phone] Social History Tobacco Use Types Packs/Day Years Used Date Current Every Day Smoker Cigarettes 0.5 Sex Assigned at Date Recorded Not on file documented as of this encounter Last Filed Vital Signs Vital Sign Reading Time Taken Comments Blood Pressure 128/82 07/03/2013 3:27 PM EST Pulse 77 07/03/2013 3:27 PM EST Temperature - - Respiratory Rate 18 07/03/2013 3:27 PM EST Oxygen Saturation 100% 07/03/2013 3:27 PM EST Inhaled Oxygen Concentration - - Weight 61.2 kg (135 lb) 07/03/2013 3:13 PM EST Height 167.6 cm (5' 6) 07/03/2013 3:13 PM EST Body Mass Index 21.79 07/03/2013 3:13 PM EST documented in this encounter Patient Instructions Patient InstructionsNess Spencer, SARAH - 07/03/2013 3:14 PM EST Pain Management Center Discharge Instructions: You were seen by Dr. Kenneth Carvajal MD and Farzad Kang MD who performed lumbar epidural steroid injection. [x] You may resume your normal activities: tomorrow. You may shower today. DO NOT tub [...] your procedure. You received the following medications: Depo-Medrol 40 mg, Lidocaine and Omnipaque (contrast dye). During regular business hours, please phone the [...] or proceed to your local emergency department. Ness Spencer LPN documented in this encounter Progress Notes Ness Spencer LPN - 07/03/2013 3:14 PM EST Pre-Procedure Screening Questions: 1. Status: No 2. 3. Patient states they have a tank truck driver to transport after procedure? Yes 4. Patient [...] provided to patient. documented in this encounter Procedure Notes Farzad Kang MD - 07/03/2013 3:08 PM ESTAssociated Order(s): EPIDURAL STEROID INJECTION Procedure(s): EPIDURAL STEROID INJECTION Pre-Procedure Diagnose(s): Lumbar and sacral arthritis L5-S1 Lumbar Epidural Steroid Injection Date of Service: 07/03/2013 Patient: Shaheed Caldera Provider: FARZAD KANG MD Shaheed Caldera has been referred to the Pain Management Center for lumbar epidural steroid injection. COMMENTS: Referring provider: Dr. Diehl Pain location: Low back Mr. Caldera was interviewed and the medical record reviewed. There were no medical, pharmacologic, radiographic or other structural contraindications to attempting fluoroscopically guided epidural steroid injection. Risks and expected side effects as well as potential benefit of the procedure were rev iewed with Mr. Caldera, and his voiced concerns addressed. The printed consent form was signed and witnessed. Standard time-out procedure was performed. Mr. Caldera was placed in the prone position on the fluoroscopy table and automated blood pressure cuff and pulse oximeter applied. The skin entry point for entering the epidural space by a interlaminar approach at L5-S1 left of midline was identified under fluoroscopy and marked. Following thorough Chlorhexadine preparation of the skin and draping and 1% lidocaine infiltration of the skin entry point and subcutaneous tissues, an 18 gauge Tuohy needle was placed under fluoroscopic guidance and with loss of resistance technique into the epidural space. Upon needle placement and loss of resistance there were no paresthesiae or return of blood or CSF through the needle. 1 ml Omnipaque 240 were injected with clear epidural spread in A/P and lateral. 120 mg of Depomedrolfollowed by 1 ml sterile normal saline were injected through the needle with no unusual discomfort expressed by Mr. Caldera. Mr. Caldera's vital signs were stable throughout the procedure and were as recorded in the docflowsheet by the nursing staff. If given, dosages of intravenous drugs for anxiolysis and analgesia were documented in MAR. Follow up plans and appointments were discussed with the Mr. Caldera. Post procedure instruction was given as documented in nursing documentation and having met discharge criteria, he was discharged from the Pain Management Center. COMMENTS: No apparent complications Repeat prn. Follow-up with Dr. Diehl. FARZAD KANG MD [facility] CC: RE SEXTON MD @PCPADD@ I was the attending physician supervising the resident in the above care and I was present with the resident for the entire procedure. Kenneth Carvajal MD documented in this encounter Plan of Treatment Not on filedocumented as of this encounter Procedures Procedure Name Priority Date/Time Associated Diagnosis Comme nts EPIDURAL STEROID Routine 07/03/2013 4:07 PM Lumbar and sacral Results for this INJECTION EST arthritis procedure are i n the results section. documented in this encounter Results EPIDURAL STEROID INJECTION (07/03/2013 4:07 PM EST) Narrative Kenneth Carvajal MD - 07/03/2013 4:07 PM EST Kenneth Carvajal MD ? 07/03/2013 ??4:07 PM L5-S1 Lumbar Epidural Steroid Injection Date of Service: ??07/03/2013 Patient: ??Shaheed Caldera ?? MRN: ??[id number] Provider: ??FARZAD KANG MD ?? Shaheed Caldera has been referred to the Pain Management Center for lumbar epidural steroid injection. ? ? COMMENTS: Referring provider: ??Dr. Diehl Pain location: ??Low back Mr. Caldera was interviewed and the [facility] record reviewed. ?? There were no medical, pharmacologic, ra diographic or other structural contraindications to attempti ng fluoroscopically guided epidural steroid injection. ??Ris ks and expected side effects as well as potential benefit of the procedure were reviewed with Mr. Caldera, and his voic ed concerns addressed. ?? The printed consent form was signed and witnessed. ??Standard time-out procedure was performed. Mr. Caldera was placed in the prone pos ition on the fluoroscopy table and automated blood pressure cuff and pulse oximeter applied. ??The skin entry point for ente ring the epidural space by a interlaminar approach at L5-S1 left of midline was identified under fluoroscopy and marked. ?? Following thorough Chlorhexadine prepara tion of the skin and draping and 1% lidocaine infiltration of the skin entry point and subcutaneous tissues, an 18 gauge Tuohy needle was placed under fluoroscopic guidance and with loss of r esistance technique into the epidural space. ??Upon needle placem ent and loss of resistance there were no paresthesiae or return of blood or CSF through the needle. ?? 1 ml Omnipaque 240 were injected with cl ear epidural spread in A/P and lateral. ??120 mg of Depomedrol followed by 1 ml sterile normal saline were injected through the needle with no unusual discomfort expressed by ??Mr. Caldera. Mr. Caldera's vital signs were stable t hroughout the procedure and were as recorded in the docflowsheet by the nursing staff. ?? If given, dosages of intravenous drugs f or anxiolysis and analgesia were documented in MAR. Follow up plans and appointments were di scussed with the Mr. Caldera. ??Post procedure instruction w as given as documented in nursing documentation and having met dis charge criteria, he was discharged from the Pain Management Cent er. COMMENTS: No apparent complications Repeat prn. Follow-up with Dr. Diehl. FARZAD KANG MD [facility] Clinic [facility] CC: RE SEXTON MD @PCPADD@ I was the attending physician supervisin g the resident in the above care and I was present with the re sident for the entire procedure. Kenneth Carvajal MD Procedure Note Farzad Kang MD - 07/03/2013 3:08 PM EST L5-S1 Lumbar Epidural Steroid Injection Date of Service: 07/03/2013 Patient: Shaheed Caldera Provider: FARZAD KANG MD Shaheed Cadlera has been referred to the [facility] for lumbar epidural steroid injection. COMMENTS: Referring provider: Dr. Diehl Pain location: Low back Mr. Caldera was interviewed and the [facility] record reviewed. There were no medical, pharmacologic, radiographic or other structural contraindications to attempting fluoroscopically guided epidural steroid injection. Risks and expected side effec ts as well as potential benefit of the procedure were reviewed with Mr. Caldera, and his voiced concerns addressed. The printed consent form was signed and witnessed. Standard time-out procedure was performed. Mr. Caldera was placed in the prone pos ition on the fluoroscopy table and automated blood pressure cuff and pulse oximeter applied. The skin entry point for entering the epidural space by a interlaminar approach at L5-S1 left of midline was identified under flu oroscopy and marked. Following thorough Chlorhexadine prepara tion of the skin and draping and 1% lidocaine infiltration of the skin entry point and subcutaneous tissues, an 18 gauge Tuohy needle was placed under fluoroscopic guidance and with loss of resistance technique in to the epidural space. Upon needle placement and loss of resistance there were no paresthesiae or return of blood or CSF through the needle. 1 ml Omnipaque 240 were injected with cl ear epidural spread in A/P and lateral. 120 mg of Depomedrol followed by 1 ml sterile normal saline were injected through the needle with no unusual discomfort expressed by Mr. Caldera. Mr. Caldera's vital signs were stable t hroughout the procedure and were as recorded in the docflowsheet by the nursing staff. If given, dosages of intravenous drugs for anxiolysis and analgesia were documented in MAR. Follow up plans and appointments were di scussed with the Mr. Caldera. Post procedure instruction was given as documented in nursing documentation and having met discharge criteria, he was discharged from the Pain Management Center. COMMENTS: No apparent complications Repeat prn. Follow-up with Dr. Diehl. FARZAD KANG MD [facility] CC: RE SEXTON MD @PCPADD@ I was the attending physician supervisin g the resident in the above care and I was present with the resident for the entire procedure. Kenneth Carvajal MD Kenneth Carvajal MD NEUROLOGY ORDERABLES documented in this encounter Visit Diagnoses Diagnosis Lumbar and sacral arthritis Lumbosacral spondylosis without myelopat hy documented in this encounter Administered Medications Inactive Administered Medications - up to 3 most recent administrations Medication Order MAR Action Action Date Dose Rate Site iohexol (OMNIPAQUE) injection 1 mL Given 07/03/2013 3:30 PM EST 1 mL 1 mL, Other, ONCE, 1 dose, On Mon07/03/13 at 1530, 49 ml wasted, Routine methylPREDNISolone acetate (depo-MEDROL) Given 07/03/2013 3:30 P M EST 120 mg injection 120 mg 120 mg, Epidural, ONCE, 1 dose, On Mon07/03/13 at 1530, Routine documented in this encounter Care Teams Assistant Store Manager Sales Relationship Specialty Start Date End Date Re Sexton MD PCP - General 07/03/13 08/04/13 documented as of this encounter
--- NOTE | 2022-03-13 16:30 | DI.RAD_ITS ---
Exam(s) XR WRIST RT COMPLETE EXAM: XR WRIST RT COMPLETE CLINICAL HISTORY: pain post injury. TECHNIQUE: 2D digital imaging was performed. COMPARISON: No exams were available for comparison FINDINGS: 3 views No evidence of fracture nor dislocation. No significant ulnar variance. No degenerative changes. S caphoid unremarkable. Scapholunate distance is normal. No erosions. IMPRESSION: No significant findings. DATA REPOSITORY: RADIATION DOSE DELIVERED:
--- NOTE | 2022-03-13 16:30 | DI.RAD_ITS ---
Exam(s) XR LUMBAR SPINE COMPLETE EXAM: XR LUMBAR SPINE COMPLETE CLINICAL HISTORY: pain lumbar spine. TECHNIQUE: 2D digital imaging was performed. COMPARISON: No exams were available for comparison FINDINGS: Six views No evidence of fracture or listhesis. No pars defects. There is moderate disc space narrowing at L4-5 and L5-S1 levels. Mild disc space narrowing at L3-4. No scoliosis. Facet joints appear unremarkable. Sacroiliac joints unremarkable. IMPRESSION: No fractures. Moderate disc space narrowing at L4-5 and L5-S1 levels. DATA REPOSITORY: RADIATION DOSE DELIVERED:
--- NOTE | 2022-03-13 16:30 | DI.RAD_ITS ---
Exam(s) XR CHEST 2V PA LATERAL EXAM: XR CHEST 2V PA LATERAL CLINICAL HISTORY: right ribs. TECHNIQUE: 2D digital imaging was performed. COMPARISON: CR,XR XR CHEST 2V PA LATERAL from 02/18/2020 FINDINGS: 2 views: Heart size is normal. The mediastinum is not widened. Lungs are clear. No infiltrates nor pleural effusions. IMPRESSION: No acute pulmonary findings. DATA REPOSITORY: RADIATION DOSE DELIVERED:
[2022-03-13] MEDS: Ketorolac 15 MG/ML VIAL IVP (17:11)
--- NOTE | 2022-03-13 18:47 | DI.VRAD_ITS ---
PROCEDURE INFORMATION: Exam: XR Chest Exam date and time: 03/13/2022 6:08 PM Age: 41 years old Clinical indication: Other: Pain post injury TECHNIQUE: Imaging protocol: Radiologic exam of the chest. Views: 2 views. COMPARISON: CR XR CHEST 2V PA LATERAL 02/18/2020 7:14 PM FINDINGS: Lungs: Unremarkable. No consolidation. Pleural spaces: Unremarkable. No pleural effusion. No pneumothorax. Heart/Mediastinum: Unremarkable. No cardiomegaly. Bones/joints: No acute abnormality. IMPRESSION: No acute findings. Dictated and Authenticated by: Miguel Bravo MD. Ordering:FRANNIE Leach MD
--- NOTE | 2022-03-13 18:47 | DI.VRAD_ITS ---
PROCEDURE INFORMATION: Exam: XR Right Wrist Exam date and time: 03/13/2022 6:05 PM Age: 41 years old Clinical indication: Pain; Wrist; Right; Additional info: Pain post injury TECHNIQUE: Imaging protocol: Radiologic exam of the Right wrist. Views: 3 or more views. COMPARISON: CR XR hand RT complete 03/31/2019 12:57 PM FINDINGS: Bones/joints: Normal. Soft tissues: Normal. IMPRESSION: No acute findings. Dictated and Authenticated by: Migeul Bravo MD. Ordering:FRANNIE Leach MD
--- NOTE | 2022-03-13 18:49 | DI.VRAD_ITS ---
PROCEDURE INFORMATION: Exam: XR Lumbosacral Spine Exam date and time: 03/13/2022 6:13 PM Age: 41 years old Clinical indication: Other: Pain post injury TECHNIQUE: Imaging protocol: Radiologic exam of the lumbosacral spine. Views: 4 or 5 views. COMPARISON: No relevant prior studies available. FINDINGS: Bones/joints: Straightening of lumbar lordosis. Mild loss of disc height at L4-L5 and L5-S1 with endplate sclerosis. Lumbosacral transitional vertebrae with sacralization of L5. Soft tissues: Unremarkable. IMPRESSION: 1. No acute fracture or subluxation. 2. Straightening of lumbar lordosis can be seen with muscle spasm. Lumbosacral transitional vertebra. 3. Mild disc degenerative changes at L4-L5 and L5-S1. Dictated and Authenticated by: Miguel Bravo MD. Ordering:FRANNIE Leach MD
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
[2022-03-13] MEDS: Cyclobenzaprine 10 MG TAB (19:06)
[2022-03-13 19:20] VITALS: BP 159/88; PULSE 67; RESP 16; TEMP 36.7; O2SAT 96
== END 2022-03-13 19:21 | disposition home or self-care (01) ==
PROVIDERS: Emergency Provider Physician Assistant; PCP Family Medicine
DX: S39.012A Strain of muscle, fascia and tendon of lower back, initial encounter (principal); F17.210 Nicotine dependence, cigarettes, uncomplicated; Y04.2XXA Assault by strike against or bumped into by another person, initial encounter; M25.531 Pain in right wrist
CPT/HCPCS: 96374; 99284; 71046; 72110; 73110; J1885

== ENCOUNTER → 2023-06-29 01:21 | Outpatient (CLI) | payer OTHER, SELFPAY ==
--- NOTE | 2023-06-29 | DI.MRI_ITS ---
Exam(s) MR LUMBAR SPINE WO EXAM: MR LUMBAR SPINE WO CLINICAL HISTORY: LUMBAGO W/ SCIATICA, RT THIGH NUMBNESS X 2 MONTHS. TECHNIQUE: Multiplanar multisequence MRI of the Lumbar spine was performed. COMPARISON: CR,XR XR LUMBAR SPINE COMPLETE from 03/13/2022 FINDINGS: Bones: The last intervertebral disc space is designated the L5/S1 level for the numbering purpose of this ex amination. The vertebral body heights are well maintained. Alignment: Unremarkable. The marrow signal characteristics are unremarkable. Cord: The conus tip ends at the T12 level. It is of normal size and signal intensity. T12-L1: No focal disc herniation is present. No central spinal canal stenosis.No neural foraminal st enosis. L1-2: No focal disc herniation is present. No central spinal canal stenosis.No neural foraminal sten osis. L2-3:Mild concentric disc bulging. No focal disc herniation is present. No central spinal canal st enosis.No foraminal stenosis. L3-4: Igop-wg-inwzvlbu disc bulging eccentric toward the right.No focal disc herniation is present. No central spinal canal stenosis.Moderate right neural foraminal stenosis. L4-5: Qbmj-tm-sqxcqoca disc bulging eccentric toward the right. No focal disc herniation is presen t. No central spinal canal stenosis.Moderate right neural foraminal stenosis. L5-S1: Loss of disc height eccentric toward the left where there are endplate osteophytes and degener ative signal changes in the endplates.No focal disc herniation is present. No central spinal canal stenosis.Severe left neural foraminal stenosis. The visualized SI joints and sacrum are well maintained. Soft tissues: The paraspinal soft tissues are unremarkable. IMPRESSION: Degenerative disc changes causing right neural foraminal narrowing at L3-4 and L4-5 and severe left n eural foraminal narrowing at L5-S1. No focal disc herniation at any level. DATA REPOSITORY:
== END ==
PROVIDERS: PCP Family Medicine; Visit Provider Nurse Practitioner Adult Health
DX: M51.36 Other intervertebral disc degeneration, lumbar region (principal); M99.63 Osseous and subluxation stenosis of intervertebral foramina of lumbar region
CPT/HCPCS: 72148

== ENCOUNTER 2023-08-16 08:37 | Outpatient (CLI) | payer OTHER, SELFPAY ==
--- NOTE | 2023-08-16 08:30 | DI.RAD_ITS ---
Exam(s) XR HAND RT COMPLETE EXAM: XR HAND RT COMPLETE CLINICAL HISTORY: right little finger injury. TECHNIQUE: 2D digital imaging was performed. Three views. COMPARISON: CR XR hand RT complete from 03/31/2019 FINDINGS: Exam limited by finger overlap on the lateral view. This obscures visualization of the little finger . BONES: No acute fracture is present. No bony destructive lesion is seen. JOINTS: No dislocation present. SOFT TISSUE: Swelling around proximal interphalangeal joint. IMPRESSION: Somewhat limited exam. No visible fracture. Swelling at 5th PIP joint. Consider follow-up images o f the little finger.. DATA REPOSITORY: RADIATION DOSE DELIVERED:
== END 2023-08-16 08:38 | disposition home or self-care (01) ==
LOC: DIORS 08:38
PROVIDERS: PCP Family Medicine; Referring Provider Family Medicine; Visit Provider Physician Assistant
DX: S60.946A Unspecified superficial injury of right little finger, initial encounter (principal); X58.XXXA Exposure to other specified factors, initial encounter
CPT/HCPCS: 73130